=== PATIENT | male | born 1970 | race Two or more races ===

== ENCOUNTER → 2017-10-24 | Outpatient (CLI) | payer OTHER ==
--- NOTE | 2017-10-24 10:58 | Diagnostic Imaging Report ---
PROCEDURE: X-RAY CHEST, TWO VIEWS COMPARISON: None. INDICATIONS: ANNUAL PHYSICAL FINDINGS: LUNGS: No consolidations or edema. PLEURA: No effusions or pneumothorax. HEART \T\ MEDIASTINUM: The heart is within normal size-limits. BONES \T\ SOFT TISSUES: No acute findings. CONCLUSION: No acute thoracic abnormality. Dictated by: Arnel Lloyd M.D. on 10/24/2017 at 11:00 Electronically approved by: Arnel Lloyd M.D. on 10/24/2017 at 11:00
== END ==
LOC: RAD 10:21
PROVIDERS: ATTEND Internal Medicine
DX: Z00.00 Encounter for general adult medical examination without abnormal findings (principal)
CPT/HCPCS: 71046

== ENCOUNTER → 2019-01-22 | Outpatient (CLI) | payer OTHER ==
--- NOTE | 2019-01-22 14:12 | Diagnostic Imaging Report ---
Renal ultrasound Clinical History: Elevated creatinine Discussion: Sonographic evaluation of the kidneys is performed. The kidneys have normal size and cortical echogenicity. The right kidney measures 9.0 cm in length. The left kidney measures 9.6 cm in length. There is no focal renal mass, hydronephrosis, or shadowing renal calculus. No perinephric fluid collection is seen. Survey images of the bladder demonstrate no abnormality. The prostate is mildly prominent measuring 3.7 x 3.2 x 4.7 cm without evidence of focal lesion ultrasound. Impression: Normal sonographic evaluation of the kidneys. Signed by: Dr. Lee Atkins MD on 01/22/2019 2:08 PM
== END ==
LOC: US 12:55
PROVIDERS: ATTEND Internal Medicine
DX: R79.89 Other specified abnormal findings of blood chemistry (principal); E78.1 Pure hyperglyceridemia; R09.89 Other specified symptoms and signs involving the circulatory and respiratory systems
CPT/HCPCS: 76770; 93880

== ENCOUNTER → 2020-02-24 | Outpatient (CLI) | payer OTHER | LOC: RAD 13:26 | PROVIDERS: ATTEND Internal Medicine | DX: R05 Cough (principal) | CPT/HCPCS: 71046 ==